=== PATIENT | male | born 1995 | race African-American/Black ===

== ENCOUNTER 2024-07-18 22:06 | Emergency (ER) | payer MEDICAID ==
[2024-07-18 22:45] VITALS: BP 148/79; PULSE 91; RESP 16; TEMP 36.94740; O2SAT 100
[2024-07-18] MEDS ORDERED: MUPI15CR11 TP (22:54)
[2024-07-18] MEDS ORDERED: DIPH28.33 TP (22:54)
== END 2024-07-18 23:10 | disposition home or self-care (01) ==
LOC: ER 22:06
DX: L29.9 Pruritus, unspecified (principal)
CPT/HCPCS: 99282